=== PATIENT | female | born 1945 | race Caucasian/White ===

== ENCOUNTER 2017-05-25 06:57 | Day surgery (SDC) | payer MEDICARE, OTHER ==
[~2017-05-25] VITALS: Ht 157.5 cm; Wt 58.0 kg
[~2017-05-25 06:57] MED LIST: ASPI-555 PO; ESCI10TA PO; LISI10TA7 PO; NAPR1TAB28 PO; ROSU10TA PO; SODIUM CHLORIDE 0.9% 1000ML 1,000 ML IV ONE
[2017-05-25 07:26] VITALS: BP 123/69
[2017-05-25] MEDS ORDERED: PROPOFOL 10 MG/ML 20ML VIAL IV ONE (08:53)
[2017-05-25 09:23] VITALS: BP 85/35
== END 2017-05-25 09:55 ==
LOC: DAH 06:57 → ENDO 06:57
PROVIDERS: ATTEND Internal Medicine Gastroenterology
DX: K63.5 Polyp of colon (principal); Z86.010 Personal history of colon polyps; I10 Essential (primary) hypertension; K52.839 Microscopic colitis, unspecified; E78.5 Hyperlipidemia, unspecified; Z79.899 Other long term (current) drug therapy
CPT/HCPCS: 45380; 45385; 88305; 88313; 93005; A4606; J2704; J7030

== ENCOUNTER → 2018-06-27 | Outpatient (CLI) | payer MEDICARE ==
[~2018-06-27] MED LIST changes: -SODIUM CHLORIDE 0.9% 1000ML 1,000 ML IV ONE
== END | disposition home or self-care (01) ==
LOC: RAH 14:33
PROVIDERS: ATTEND Internal Medicine
DX: I70.90 Unspecified atherosclerosis (principal); I71.4 Abdominal aortic aneurysm, without rupture; N20.0 Calculus of kidney; M47.814 Spondylosis without myelopathy or radiculopathy, thoracic region; M41.84 Other forms of scoliosis, thoracic region
CPT/HCPCS: 71250

== ENCOUNTER → 2020-02-20 | Outpatient (CLI) | payer MEDICARE ==
[~2020-02-20] MED LIST changes: -ASPI-555 PO; +ASPI-556 PO; -ROSU10TA PO; +ROSU10TA22 PO
== END | disposition home or self-care (01) ==
LOC: SHCH 14:16
PROVIDERS: ATTEND Internal Medicine Cardiovascular Disease
DX: I73.9 Peripheral vascular disease, unspecified (principal); R07.9 Chest pain, unspecified
CPT/HCPCS: 93306; 93356; 93925

== ENCOUNTER → 2020-02-21 | Outpatient (CLI) | payer MEDICARE ==
[~2020-02-21] MED LIST changes: +REGADENOSON 0.4 MG/5 ML PF SYG IVP ONE; +REGADENOSON 0.4 MG/5 ML PF SYG IVP SCH
== END | disposition home or self-care (01) ==
LOC: SHCH 07:50
PROVIDERS: ATTEND Internal Medicine Cardiovascular Disease
DX: R07.9 Chest pain, unspecified (principal)
CPT/HCPCS: 78452; 93017; 96374; A9500 ×2; J2785

== ENCOUNTER → 2020-10-13 | Outpatient (CLI) | payer MEDICARE ==
[~2020-10-13] MED LIST changes: +LISI10TA24 PO; -LISI10TA7 PO; -REGADENOSON 0.4 MG/5 ML PF SYG IVP ONE; -REGADENOSON 0.4 MG/5 ML PF SYG IVP SCH
== END | disposition home or self-care (01) ==
LOC: RAH 15:24
PROVIDERS: ATTEND Internal Medicine
DX: Z12.31 Encounter for screening mammogram for malignant neoplasm of breast (principal)
CPT/HCPCS: 77067

== ENCOUNTER → 2021-04-13 | Outpatient (CLI) | payer MEDICARE | END | disposition home or self-care (01) | LOC: RAH 13:12 | PROVIDERS: ATTEND Internal Medicine | DX: E04.1 Nontoxic single thyroid nodule (principal); M47.815 Spondylosis without myelopathy or radiculopathy, thoracolumbar region; M41.85 Other forms of scoliosis, thoracolumbar region | CPT/HCPCS: 72070; 72100; 76536 ==

== ENCOUNTER → 2021-04-27 | Outpatient (CLI) | payer MEDICARE | END | disposition home or self-care (01) | LOC: RAH 08:50 | PROVIDERS: ATTEND Orthopaedic Surgery | DX: M75.82 Other shoulder lesions, left shoulder (principal); M25.412 Effusion, left shoulder | CPT/HCPCS: 73221 ==

== ENCOUNTER → 2021-06-03 | Outpatient (CLI) | payer MEDICARE ==
[~2021-06-03] MED LIST changes: +MELO-106 PO
== END | disposition home or self-care (01) ==
LOC: RAH 16:33
PROVIDERS: ATTEND Internal Medicine
DX: Z01.818 Encounter for other preprocedural examination (principal); M75.112 Incomplete rotator cuff tear or rupture of left shoulder, not specified as traumatic
CPT/HCPCS: 71046

== ENCOUNTER 2021-06-10 06:30 | Day surgery (SDC) | payer MEDICARE ==
[2021-06-09 10:23] VITALS: BP 143/71
[2021-06-10] VITALS (11 sets, daily range): BP systolic 131–153; BP diastolic 60–71
[~2021-06-10] VITALS: Ht 162.6 cm; Wt 57.2 kg
[~2021-06-10 06:30] MED LIST changes: -ASPI-556 PO; +CEFAZOLIN SODIUM 1 GM VIAL IVP SCH; -NAPR1TAB28 PO
[2021-06-10] MEDS ORDERED: LACTATED RINGERS 1000ML 1,000 ML IV ONE (06:55)
[2021-06-10] MEDS ORDERED: CEFAZOLIN SODIUM 1 GM VIAL ONE (07:47)
[2021-06-10] MEDS ORDERED: LIDOCAINE PF 100MG/5ML (2%) SYRINGE 5ML ONE (08:37)
[2021-06-10] MEDS ORDERED: SUCCINYLCHOLINE CHLORIDE 20 MG/ML 10 ML VIAL ONE (08:37)
[2021-06-10] MEDS ORDERED: GLYCOPYRROLATE 1 MG/5 ML SYRINGE ONE (08:37)
[2021-06-10] MEDS ORDERED: DEXAMETHASONE SOD PHOSPHATE 10MG/ML 1ML VIAL ONE (08:37)
[2021-06-10] MEDS ORDERED: PROPOFOL 10 MG/ML 20ML VIAL IV ONE (08:37)
[2021-06-10] MEDS ORDERED: NEOSTIGMINE 5MG/5ML SYR IV ONE (08:37)
[2021-06-10] MEDS ORDERED: FENTANYL CITRATE PF 50 MCG/1 ML 2ML VIAL ONE (08:37)
[2021-06-10] MEDS ORDERED: MIDAZOLAM HCL 1 MG/ML 2ML VIAL ONE (08:38)
[2021-06-10] MEDS ORDERED: ROCURONIUM 10MG/1ML SYR 10 MG/ML ML ONE (08:38)
[2021-06-10] MEDS ORDERED: ROPIVACAINE 0.5% 5MG/ML 30ML IJ ONE (08:39)
[2021-06-10] MEDS ORDERED: EPHEDRINE SULFATE 50 MG/ML AMPULE ONE (09:22)
[2021-06-10] MEDS ORDERED: ONDANSETRON 4MG INJ ONE (10:31)
[2021-06-10] MEDS ORDERED: CEPH500B PO (10:33)
[2021-06-10] MEDS ORDERED: HYDR-4060 PO (10:33)
== END 2021-06-10 12:05 | disposition home or self-care (01) ==
LOC: DAH 06:30
PROVIDERS: ATTEND Orthopaedic Surgery
DX: M75.122 Complete rotator cuff tear or rupture of left shoulder, not specified as traumatic (principal); Z20.822 Contact with and (suspected) exposure to COVID-19; M66.822 Spontaneous rupture of other tendons, left upper arm; G89.29 Other chronic pain; I10 Essential (primary) hypertension; E78.5 Hyperlipidemia, unspecified; F32.A Depression, unspecified; Z79.899 Other long term (current) drug therapy; Z98.890 Other specified postprocedural states; Z87.891 Personal history of nicotine dependence; Z82.49 Family history of ischemic heart disease and other diseases of the circulatory system
CPT/HCPCS: 23412; 23430; 64415; 76942; 87635; A4215; A4216; A4221; A4222; A4223 ×2; A4565; A4600; A4649; A4663; A4930; A5120; A6204; C1713 ×3; C9803; G0168; J0330; J0690 ×2; J1100; J2001; J2250; J2405; J2704; J2710; J2795; J3010; J3490 ×2; J7120

== ENCOUNTER → 2022-01-04 | Outpatient (CLI) | payer MEDICARE ==
[~2022-01-04] MED LIST changes: -CEFAZOLIN SODIUM 1 GM VIAL IVP SCH; +CEPH500B PO; +HYDR-4060 PO
== END | disposition home or self-care (01) ==
LOC: RAH 10:58
PROVIDERS: ATTEND Internal Medicine
DX: Z12.31 Encounter for screening mammogram for malignant neoplasm of breast (principal)
CPT/HCPCS: 77067

== ENCOUNTER → 2022-01-06 | Outpatient (CLI) | payer MEDICARE | END | disposition home or self-care (01) | LOC: RAH 14:10 | PROVIDERS: ATTEND Internal Medicine | DX: E04.1 Nontoxic single thyroid nodule (principal) | CPT/HCPCS: 76536 ==

== ENCOUNTER → 2022-08-23 | Outpatient (CLI) | payer MEDICARE | END | disposition home or self-care (01) | LOC: RAH 14:25 | PROVIDERS: ATTEND Nurse Practitioner Adult Health | DX: R07.81 Pleurodynia (principal) | CPT/HCPCS: 71100 ==

== ENCOUNTER → 2023-03-21 | Outpatient (CLI) | payer MEDICARE | END | disposition home or self-care (01) | LOC: RAH 10:36 | PROVIDERS: ATTEND Nurse Practitioner Adult Health | DX: E04.2 Nontoxic multinodular goiter (principal) | CPT/HCPCS: 76536 ==

== ENCOUNTER → 2023-07-11 | Outpatient (CLI) | payer OTHER | END | disposition home or self-care (01) | LOC: OIH 14:42 | PROVIDERS: ATTEND Nurse Practitioner Adult Health | DX: Z13.6 Encounter for screening for cardiovascular disorders (principal) | CPT/HCPCS: 75571 ==

== ENCOUNTER → 2023-07-15 | Outpatient (CLI) | payer MEDICARE | END | disposition home or self-care (01) | LOC: RAH 14:55 | PROVIDERS: ATTEND Nurse Practitioner Adult Health | DX: I65.21 Occlusion and stenosis of right carotid artery (principal); R09.89 Other specified symptoms and signs involving the circulatory and respiratory systems | CPT/HCPCS: 93880 ==

== ENCOUNTER → 2023-11-23 | Outpatient (CLI) | payer MEDICARE ==
[2023-11-23 08:56] LABS: ALBUMIN 3.8 g/dL (3.5-5.0); BILIRUBIN,TOTAL 0.3 mg/dL (0.2-1.0); CREATININE 0.7 mg/dL (0.5-1.0); POTASSIUM 4.3 mmol/L (3.5-5.1); TOTAL PROTEIN, SERUM 6.6 g/dL (6.0-8.3)
== END | disposition home or self-care (01) ==
LOC: LAB 07:45
PROVIDERS: ATTEND Internal Medicine Cardiovascular Disease
DX: I10 Essential (primary) hypertension (principal)
CPT/HCPCS: 36415; 80053

== ENCOUNTER → 2023-11-28 | Outpatient (CLI) | payer MEDICARE ==
[~2023-11-28] MED LIST changes: +IOHEXOL 350 MG/ML 100ML INFUS..BTL IV ONE; +METOPROLOL TARTRATE 1 MG/ML 5ML VIAL IV ONE
== END | disposition home or self-care (01) ==
LOC: RAH 09:24
PROVIDERS: ATTEND Internal Medicine Cardiovascular Disease
DX: I08.3 Combined rheumatic disorders of mitral, aortic and tricuspid valves (principal); I11.9 Hypertensive heart disease without heart failure; E78.5 Hyperlipidemia, unspecified
CPT/HCPCS: 93306; 75574; J3490 ×2; Q9967

== ENCOUNTER → 2024-08-06 | Outpatient (CLI) | payer MEDICARE ==
[~2024-08-06] MED LIST changes: +ASPI-1005 PO; -CEPH500B PO; -ESCI10TA PO; -HYDR-4060 PO; -LISI10TA24 PO; +LOSA25TA41 PO; -MELO-106 PO; +METO-408 PO; -METOPROLOL TARTRATE 1 MG/ML 5ML VIAL IV ONE; +MVI PO
--- NOTE | 2024-08-06 13:28 | HMCIMG ---
CT neck with and without contrast with special attention to the carotid and vertebral artery system bilaterally Comparison Study: none History: r/o CVA CT Dose Index (CTDI): mGy Dose Length Product (DLP): total mGy-cm Note: Exposure factors and contrast administration applies to both the CT angiogram of the head and the neck done at the same time. PROTOCOL: Examination is done after contrast administration with 100 cc of Isovue 370 IV. Photography is done at 5 millimeter thick intervals for the head. The study was performed in the axial plane, and reconstructed and photographed in sagittal and coronal planes as well. Findings: There is atheromatous plaque involving the aortic arch as well as the common carotids and both internal carotid arteries, without significant narrowing or occlusion. There is no aneurysm. There is no occlusion. There is no dissection. The examination of the cervical spine shows no fractures, dislocations, or significant abnormalities. The examination on the neck is unremarkable otherwise. No lymphadenopathy seen. There are no masses. There are no fluid collections. The fat planes are preserved. The parotid glands are intact. Impression: Atheromatous plaque is noted. No carotid occlusions. This study was performed using dose reduction techniques to include automated exposure control and/or adjustment of the mA and/or kV according to patient size.
== END | disposition home or self-care (01) ==
LOC: RAH 08:32
PROVIDERS: ATTEND Internal Medicine Cardiovascular Disease
DX: I70.0 Atherosclerosis of aorta (principal); R09.89 Other specified symptoms and signs involving the circulatory and respiratory systems
CPT/HCPCS: 70498; Q9967

== ENCOUNTER → 2024-08-30 | Outpatient (CLI) | payer MEDICARE ==
[~2024-08-30] MED LIST changes: -IOHEXOL 350 MG/ML 100ML INFUS..BTL IV ONE
[2024-08-30 14:58] LABS: CREATININE 0.6 mg/dL (0.5-1.0); POTASSIUM 3.9 mmol/L (3.5-5.1)
== END | disposition home or self-care (01) ==
LOC: LAB 14:23
PROVIDERS: ATTEND Nurse Practitioner Adult Health
DX: M10.9 Gout, unspecified (principal); E11.65 Type 2 diabetes mellitus with hyperglycemia; R53.83 Other fatigue; Z00.00 Encounter for general adult medical examination without abnormal findings; E03.8 Other specified hypothyroidism; E55.9 Vitamin D deficiency, unspecified
CPT/HCPCS: 36415; 80048

== ENCOUNTER → 2024-09-03 | Outpatient (CLI) | payer MEDICARE ==
[~2024-09-03] MED LIST changes: +IOHEXOL-350 75 ML VIAL IV ONE
--- NOTE | 2024-09-03 11:50 | HMCIMG ---
CT ABDOMEN/PELVIS W/WO CONTRAS REASON: Hematuria, unspecified COMPARISON: None. TECHNIQUE: Images are obtained from lung bases to symphysis pubis before and after IV contrast, 75 cc Omnipaque [id number]. Oral contrast was administered as well. FINDINGS: Lung bases are clear. There are no focal liver lesions. Liver does not appear enlarged.. Spleen and pancreas appear unremarkable. The gallbladder appears normal as well. There is moderate left hydronephrosis. There is a 7 mm stone in the proximal left ureter just below the lower pole of the left kidney. There is a nonobstructing 3 mm stone in a middle pole calyx on the right. There is no right-sided hydronephrosis. Neither kidney demonstrates evidence of mass. There is moderate sigmoid diverticulosis without evidence of diverticulitis. Bowel loops appear otherwise unremarkable. Appendix was not separately identified, there is no secondary CT evidence of appendicitis such as appendicolith or phlegmon. There is no evidence of free fluid or intraperitoneal air. There are no focal fluid collections. Aorta and retroperitoneum appear normal as do pelvic soft tissue structures. The anterior abdominal wall is intact. Osseous structures appear unremarkable. IMPRESSION: 1. 7 mm stone in the proximal left ureter with moderate hydronephrosis. 2. 3 mm nonobstructing stone in the middle pole calyx on the right. 3. Moderate sigmoid diverticulosis without evidence of diverticulitis. CT was performed with one or more following dose reduction techniques: automated exposure control, adjustment of the mA and kv according to patient's size, or use of a iterative reconstruction technique.
== END | disposition home or self-care (01) ==
LOC: RAH 07:57
PROVIDERS: ATTEND Nurse Practitioner Adult Health
DX: N13.2 Hydronephrosis with renal and ureteral calculous obstruction (principal); K57.30 Diverticulosis of large intestine without perforation or abscess without bleeding; R31.9 Hematuria, unspecified
CPT/HCPCS: 74178; Q9967

== ENCOUNTER → 2024-11-23 | Outpatient (CLI) | payer MEDICARE ==
[~2024-11-23] MED LIST changes: -IOHEXOL-350 75 ML VIAL IV ONE
--- NOTE | 2024-11-23 15:02 | HMCIMG ---
ABD 1VW REASON: Calculus of kidney FINDINGS: Single image of the abdomen was obtained. Bowel gas pattern is normal. Bones and soft tissues appear unremarkable. There are no abnormal calcifications. There are multiple popcorn-like calcification suggesting of myomatous changes.. There is diverticulosis seen in the sigmoid colon with previous contrast study. There is osteopenia of the osseous structure. There is dextroscoliosis of the lumbar spine with the apex at L2-L3. IMPRESSION: 1. Nonspecific gas pattern 2. No obstructing calculi identified 3. Diverticulosis in sigmoid colon 4. There is moderate change of the uterus with multiple popcorn-like calcification 4. Osteopenia.
--- NOTE | 2024-11-24 07:52 | HMCIMG ---
EXAM: Renal Tomogram , 5 View. CLINICAL HISTORY: Calculus of kidney COMPARISON: None provided. FINDINGS: Bilateral kidneys appear normal in size and position. Radioopacity measuring 4.5mm in the mid pole of the right kidney. BONES: No aggressive appearing osseous lesion seen. Dextroscoliosis with severe spondylosis in the lumbar spine. IMPRESSION: Calculus measuring 4.5mm in the mid pole of the right kidney. /[place]
== END | disposition home or self-care (01) ==
LOC: RAH 13:54
PROVIDERS: ATTEND Nurse Practitioner Adult Health
DX: N20.0 Calculus of kidney (principal); K57.30 Diverticulosis of large intestine without perforation or abscess without bleeding; M85.88 Other specified disorders of bone density and structure, other site; M47.816 Spondylosis without myelopathy or radiculopathy, lumbar region; N85.8 Other specified noninflammatory disorders of uterus
CPT/HCPCS: 74018; 76100

== ENCOUNTER → 2024-12-13 | Outpatient (CLI) | payer MEDICARE ==
--- NOTE | 2024-12-13 14:24 | HMCIMG ---
ABD 1VW REASON: CALCULUS OF KIDNEY FINDINGS: Single image of the abdomen was obtained. Bowel gas pattern is normal. Bones and soft tissues appear unremarkable. There is a left-sided double-J ureteral stent with the proximal loop in left renal pelvis the distal loop in urinary bladder.. There are large popcorn like calcification in the right lower pelvis suggesting of fibroid calcification.. There is no evidence of foreign body. There is dextroscoliosis of the lumbar spine. There is osteopenia of the osseous structure. IMPRESSION: 1. Nonspecific gas pattern 2. Left-sided double-J ureteral stent in satisfactory position..
--- NOTE | 2024-12-14 06:53 | HMCIMG ---
EXAM: CR Abdomen, 1 view. CLINICAL HISTORY: Pain. COMPARISON: None provided. FINDINGS: Left ureteral stent in place. No urinary calculi identified. Nonobstructed nonspecific bowel gas pattern. No free air is evident. No abnormal calcification. No aggressive appearing osseous lesion. IMPRESSION: Left ureteral stent in place. No urinary calculi identified. /[place]
== END | disposition home or self-care (01) ==
LOC: RAH 13:16
PROVIDERS: ATTEND Urology
DX: N20.0 Calculus of kidney (principal); M41.86 Other forms of scoliosis, lumbar region; Z46.6 Encounter for fitting and adjustment of urinary device
CPT/HCPCS: 74018; 76100

== ENCOUNTER → 2024-12-14 | Outpatient (CLI) | payer MEDICARE ==
--- NOTE | 2024-12-15 15:05 | HMCIMG ---
EXAM: CT Abdomen and Pelvis Without IV contrast CLINICAL HISTORY: Calculus of kidney TECHNIQUE: Axial computed tomography images of the abdomen and pelvis without intravenous contrast. CONTRAST: No IV contrast. COMPARISON: Study dated 11/12. FINDINGS: LUNG BASES: The lung bases appear clear. No pleural effusions are seen. LIVER: The liver is enlarged in size. The right hepatic lobe measures up to 16 cm. GALLBLADDER AND BILE DUCTS: The gallbladder appears within normal limits. No radioopaque gallstones are seen. No biliary ductal dilatation is evident. PANCREAS: Unremarkable. SPLEEN: Unremarkable. ADRENAL GLANDS: Unremarkable. KIDNEYS, URETERS, AND BLADDER: 3.2 mm and 3 mm calculus in the mid pole and lower calyx of the right kidney. There is a ureteral stent with a proximal tip in the left renal pelvis and a distal tip in the urinary bladder. Renal concretions in the lower pole of the left kidney. Mild hydronephrosis with few air foci in the left kidney, likely postprocedural. There is no hydronephrosis in the right kidney. STOMACH AND BOWEL: Unremarkable appearance of the stomach and bowel. No evidence of bowel obstruction. No evidence suggesting enteritis or colitis. 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 Diverticulosis involving the sigmoid and descending colon, without signs of acute diverticulitis. No change compared to prior study. APPENDIX: Normal appendix. PERITONEUM: No free fluid. No free air. LYMPH NODES: No lymphadenopathy is evident. REPRODUCTIVE: Few calcified fibroids, the largest of size 2 x 2.1 cm, in the anterior wall of the uterus. VASCULATURE: No evidence of abdominal aortic aneurysm. Atherosclerotic changes in the aorta and iliac arteries. BONES: No aggressive appearing osseous lesion. No acute osseous pathology evident. Scoliosis in the lumbar spine with mild convexity toward the right side. Moderate to severe degenerative changes in the spine. IMPRESSION: Left ureteral stent in place with mild left hydronephrosis and air foci, likely postprocedural. Right renal calculi measuring 3.2 mm and 3 mm in the mid pole and lower calyx, respectively. No right ureteral stones. No right hydronephrosis. /[place]
== END | disposition home or self-care (01) ==
LOC: RAH 09:35
PROVIDERS: ATTEND Urology
DX: N13.2 Hydronephrosis with renal and ureteral calculous obstruction (principal); K57.90 Diverticulosis of intestine, part unspecified, without perforation or abscess without bleeding; M41.86 Other forms of scoliosis, lumbar region; M47.817 Spondylosis without myelopathy or radiculopathy, lumbosacral region; I70.0 Atherosclerosis of aorta; R16.0 Hepatomegaly, not elsewhere classified
CPT/HCPCS: 74176